=== PATIENT | female | born 1945 | race Caucasian/White ===

== ENCOUNTER 2016-12-26 17:28 | Emergency (ER) | payer MEDICARE ==
[~2016-12-26] VITALS: Ht 167.6 cm; Wt 120.0 kg
[2016-12-26 17:33] VITALS: BP 201/122; PULSE 82; RESP 16; O2SAT 96
[2016-12-26 17:54] VITALS: BP 175/124; PULSE 74
[2016-12-26 18:07] LABS: BASOPHILS % (AUTO) 0.4 % (0-3); EOSINOPHILS % (AUTO) 3.1 % (0-5); MONOCYTES % (AUTO) 10.7 % (4-12); Mean Corpuscular Hemoglobin 30.3 pg (27.0-35.0); NEUTROPHILS % (AUTO) 53.9 % (40-74); Platelet Count 255 bil/L (150-400)
[2016-12-26 18:41] LABS: INR 0.92 ratio
[2016-12-26 18:45] LABS: Lipase 38 U/L (13-60); Magnesium 1.9 mg/dL (1.6-2.6)
[2016-12-26 18:52] LABS: TROPONIN T < 0.010 ug/L (0.0-0.011)
--- NOTE | 2016-12-26 19:18 | ED.REPORT ---
HPI-General Illness Date of Service Dec 26, 2016 ED Provider: Jose iMguel Blancas MD A 71 year old female with a history of hypertension, renal insufficiency and s/ p L subclavian stent placement presents to the ED following an asymptomatic hypertensive episode that occurred 1 hours prior to arrival. The patient recorded a systolic BP of 237 at 1700 this evening. She was evaluated by an [facility] KEEPER and was instructed to take 2 extra carvedilol and 3 amlodipine. She was directed to the ED for further evaluation. Patient has been completely asymptomatic and presents to the ED tonight with concern for her elevated systolic BP. No known alleviating or exacerbating factors. No other complaints. She did not take her blood pressure again. The patient denies any fever, chills, headache, neck stiffness, nausea, vomiting, visual disturbances, earache, rash, abdominal pain, chest pain, shortness of breath, recent cough, diarrhea, constipation, dysuria, lightheadedness, numbness/tingling or unilateral weakness. Nursing Notes Stated Complaint: HYPERTENSION Chief Complaint: General Complaint Nursing Notes Reviewed: Yes Allergies: Coded Allergies: Penicillins (Verified Allergy, Unknown, Hives, 12/26/16) General Time Seen by MD: 17:50 Chief Complaint Other (Hypertensive episode) Hx Obtained From: Patient Arrived By: Walk-in Sudden in Onset?: No Onset Occurred: Just prior to arrival Symptom Duration: Since onset Pertinent Negative: Pt denies other symptoms Recent Healthcare: No recent doctor visit, No recent hospitalization Similar Sx Previous: Yes Past Medical History Past Medical History Hypertension Renal insufficiency Past Surgical History L Subclavian stent placement Cataract surgery Family History PVD Reports: Coronary artery disease (Father) Smoking History Former Smoker (2012) Social History Previously social drinker Alcohol Use: Denies alcohol use Drug Use: Denies drug use Other Social History: Good social support, Local resident Occupation Retired OR nurse Ambulatory Status Independent Review of Systems + Hypertensive episode; otherwise she is asymptomatic. Full Review of Systems Constitutional: Denies: Chills, Fever Eyes: Denies: Visual loss bilateral Ears / Nose / Throat: Denies: Earache bilateral Respiratory: Denies: Non-productive cough, Shortness of breath Cardiovascular: Denies: Chest pain GI: Denies: Abdominal pain, Constipation, Diarrhea, Nausea, Vomiting Female: Denies: Dysuria Musculoskeletal: Denies: Neck pain Skin: Denies Rash Neurologic: Denies: Headache, Lightheaded, Numbness, Weakness Complete sys rev & neg: except as marked. Physical Exam Nursing note and vitals reviewed. Constitutional: Well-developed, well-nourished. Not diaphoretic. Head: Normocephalic and atraumatic. Mouth/Throat: Oropharynx is clear and moist. No oropharyngeal exudate. Eyes: EOM are normal. Pupils are equal, round, and reactive to light. Neck: Supple, no tracheal deviation. Cardiovascular: Normal rate, regular rhythm. Equal and intact distal pulses throughout. Pulmonary/Chest: Effort normal and breath sounds normal. No respiratory distress. Abdominal: Soft. No distension. There is no tenderness, rebound, or guarding. Musculoskeletal: Range of motion grossly intact, moving all extremities. No edema or tenderness appreciated. Neurological: AOx3. Grossly nonfocal exam. Strength and sensation intact and equal to bilateral upper and lower extremities. Normal finger to nose testing. Skin: Warm and dry, no rashes or pallor appreciated. Psychiatric: Appropriate mood and affect. Behavior appears normal. Vital Signs Vital Signs Date Time Temp Pulse Resp B/P Pulse Ox O2 Delivery O2 Flow Rate FiO2 12/26/16 21:34 71 18 180/100 94 12/26/16 20:05 71 18 168/87 94 12/26/16 17:54 74 175/124 12/26/16 17:33 36.7 82 16 201/122 96 Room Air Initial VS: Reviewed Interpretation & Diagnostics Lab Results Interpretation Result Diagram: 12/26/16 1804 12/26/16 1804 Test 12/26/16 18:04 12/26/16 18:14 12/26/16 20:28 White Blood Count 7.7th/mm3 (3.8-10.1) Red Blood Count 4.89mil/mm3 (3.90-5.20) Hemoglobin 14.8g/dL (12.0-15.6) Hematocrit 45.0% (35.0-46.0) Mean Corpuscular Volume 92.0fL (81-100) Mean Corpuscular Hemoglobin 30.3pg (27.0-35.0) Mean Corpuscular Hemoglobin Concent 32.9% (32.0-37.0) Red Cell Distribution Width 13.9% (12.3-15.4) Platelet Count 255bil/L (150-400) Neutrophils (%) (Auto) 53.9% (40-74) Lymphocytes (%) (Auto) 31.6% (14-46) Monocytes (%) (Auto) 10.7% (4-12) Eosinophils (%) (Auto) 3.1% (0-5) Basophils (%) (Auto) 0.4% (0-3) Sodium Level 140mEq/L (134-144) Potassium Level 4.5mEq/L (3.5-5.2) Chloride Level 102mEq/L (97-108) Carbon Dioxide Level 22mmol/L (18-29) Blood Urea Nitrogen 19mg/dL (8-27) Creatinine 1.09mg/dL (0.57-1.00) Estimat Glomerular Filtration Rate 71mL/min (>59) Glucose Level 145mg/dL (60-99) Calcium Level 10.0mg/dL (8.5-10.1) Magnesium Level 1.9mg/dL (1.6-2.6) Total Bilirubin 0.3mg/dL (0.0-1.2) Aspartate Amino Transf (AST/SGOT) 16U/L (0-50) Alanine Aminotransferase (ALT/SGPT) 14U/L (0-32) Alkaline Phosphatase 91U/L (25-165) Troponin T < 0.010ug/L (0.0-0.011) Total Protein 7.1g/dL (6.4-8.4) Albumin 4.3g/dL (3.4-5.0) Lipase 38U/L (13-60) Prothrombin Time 9.8sec (8.1-12.5) Prothromb Time International Ratio 0.92ratio Lactic Acid Level 1.0mmol/L (0.4-2.0) Urine Color Yellow (YELLOW) Urine Appearance Clear (CLEAR,HAZY) Urine pH 6.0 (5.0-8.0) Urine Specific [place] 1.020 (1.003-1.035) Urine Protein Negativemg/dL (NEG,TRACE) Urine Glucose (UA) Negativemg/dL (NEGATIVE) Urine Ketones Negativemg/dL (NEGATIVE) Urine Occult Blood Trace (NEGATIVE) Urine Nitrite Negative (NEGATIVE) Urine Bilirubin Negative (NEGATIVE) Urine Urobilinogen Normalmg/dL (NORMAL) Urine Leukocyte Esterase Negative (NEGATIVE) Urine RBC 0-2/hpf (0-2) Urine WBC 0-5/hpf (0-5) Urine Epithelial Cells Moderate/hpf (NONE-MOD) Urine Crystals None seen (NONE SEEN) Urine Bacteria Few/hpf (NONE-FEW) Urine Hyaline Casts None/lpf (NONE) Urine Granular Casts None seen (NONE SEEN) Urine Waxy Casts None seen (NONE SEEN) Urine Red Blood Cell Casts None seen (NONE SEEN) Urine White Blood Cell Casts None seen (NONE SEEN) Urine Mucus None seen (None Seen) Urine Trichomonas None seen (NONE SEEN) Urine Yeast None (NONE SEEN) Urinalysis Comment None Urine Culture Reflexed Not indicated ECG Interpretation ECG Interpretation: Sinus rhythm Rate 79 bpm No prior for comparison No acute ischemic changes Time: 18:09 Interpreted by: ED physician Re-Eval/Medical Decision Med Decision/Clinical Course 71-year-old female presenting to the ED for evaluation of hypertension noted once earlier today during a routine check with a systolic pressure in the 230s. She has no chest pain or shortness of breath, troponin is negative, EKG with no acute ischemic changes that would suggest demand ischemia. No headache, no neurologic symptoms that would prompt emergent imaging of the brain, and her blood pressure here in the emergency department has ranged from 80 systolic in the 160s to 170s to 200 initially in triage; this improved without intervention while here in the emergency department. Laboratory studies reviewed. CBC and CMP grossly unremarkable with the exception of a creatinine of 1.09; patient states that she has had a mildly elevated creatinine in the past, and while she does not know the number, thinks it has been higher in the past. I do not think that this represents evidence of acute end organ damage at this time, especially in the setting of improved pressures here. However, I would like her to follow up with her PCP tomorrow to be reevaluated. Very careful return precautions were discussed, and discharge home at this time seems appropriate. Patient is agreeable to this. No further questions at this time. Time of Eval: 21:03 Patient Status: Condition improved Re-Evaluation/Progress Note: Upon recheck, the patient's symptoms have improved. She is informed of her results and the intended treatment plan. She reports that her orthostatic vitals were positive when she travelled to the bathroom. All questions are addressed at this time and she is agreeable to the current plan. Counseled Regarding: Diagnosis, Lab results, Need for follow-up, When/why to return to ED Discharge & Departure Primary Impression: Hypertensive urgency Disposition: Home Discharge Condition All VS Reviewed: Yes Condition: Improved Patient Instructions: Hypertension (ED) Additional Instructions: Thank you for trusting us with your care this evening. Your emergency department evaluation today including examination, lab work and EKG are reassuring that there is no emergent cause for concern at this time, however, we cannot definitively rule-out acute kidney injury without previous lab work. Your Creatinine was mildly elevated this evening, however you have mentioned that it has been high in the past, so it seems less likely that this represents an acute change. I highly recommend that you schedule a follow up appointment with your primary care physician in the next 24 hours to have your blood redrawn. Continue to take your home medications as directed. Please return to the emergency department for any new or worsening symptoms including any chest pain, shortness of breath, heavy sweating, fever, chills, nausea, vomiting, abdominal pain, headache, weakness, numbness/tingling, or any other symptoms of concern to you. Referrals: Gisselle Hutton (PCP) Scribe Attestation Portions of this note were transcribed by Em Marina. I, Dr. Blancas personally performed the history, physical exam and medical decision-making; I reviewed and confirmed the accuracy of the information in the transcribed note. Signed by Jeremy Lea, 12/26/16. copies to: Gisselle Hutton William B MD Dec 26, 2016 19:17 EM MARINA Dec 26, 2016 19:33
[2016-12-26 20:05] VITALS: BP 168/87; PULSE 71; RESP 18; O2SAT 94
[2016-12-26 20:48] LABS: APPEARANCE,URINE CLEAR (CLEAR,HAZY); COLOR,URINE YELLOW (YELLOW); OCCULT BLOOD,URINE TRACE (NEGATIVE); UROBILINOGEN,URINE NORMAL (NORMAL)
[2016-12-26 21:34] VITALS: BP 180/100; PULSE 71; RESP 18; O2SAT 94
== END 2016-12-26 21:50 | disposition home or self-care (01) ==
LOC: SED 17:28
DX: I16.0 Hypertensive urgency (principal); Z98.890 Other specified postprocedural states; Z87.891 Personal history of nicotine dependence; Z88.0 Allergy status to penicillin